=== PATIENT | male | born 1990 | race American Indian/Alaskan Native ===

== ENCOUNTER 2017-11-07 16:34 | Emergency (ER) | payer OTHER ==
[2017-11-07 16:44] VITALS: BP 124/85
[2017-11-07] MEDS ORDERED: MOTRIN PO ONE (19:52)
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
== END 2017-11-07 21:15 | disposition home or self-care (01) ==
LOC: ED 16:34
DX: S16.1XXA Strain of muscle, fascia and tendon at neck level, initial encounter (principal); S39.012A Strain of muscle, fascia and tendon of lower back, initial encounter; V87.7XXA Person injured in collision between other specified motor vehicles (traffic), initial encounter; Y93.89 Activity, other specified; Y92.488 Other paved roadways as the place of occurrence of the external cause; Y99.8 Other external cause status
CPT/HCPCS: 72040; 72100; 99283

== ENCOUNTER 2020-03-25 11:06 | Emergency (ER) | payer OTHER ==
[2020-03-25 12:06] VITALS: BP 117/72
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
== END 2020-03-25 12:38 | disposition home or self-care (01) ==
LOC: ED 11:06
DX: S39.012A Strain of muscle, fascia and tendon of lower back, initial encounter (principal); R51.9 Headache, unspecified; Z79.899 Other long term (current) drug therapy; V49.49XA Driver injured in collision with other motor vehicles in traffic accident, initial encounter; Y92.410 Unspecified street and highway as the place of occurrence of the external cause; Y93.89 Activity, other specified; Y99.8 Other external cause status